=== PATIENT | male | born 1985 | race African-American/Black ===

== ENCOUNTER 2021-01-11 04:01 | Emergency (ER) | payer SELFPAY ==
[~2021-01-11] VITALS: Ht 177.8 cm; Wt 81.6 kg
--- NOTE | 2021-01-11 04:22 | NUR ---
CALLED MULTIPLE TIMES FOR TRAIGE WITH NO RESPONSE.
[2021-01-11 04:35] VITALS: BP 128/63
--- NOTE | 2021-01-11 04:40 | NUR ---
SEE PATIENT ASSESSMENT FOR MORE INFORMATION.
[2021-01-11] MEDS ORDERED: IBUPROFEN 800 MG TAB PO ONE (04:45)
--- NOTE | 2021-01-11 05:15 | NUR ---
LABS DRAWN AND WALKED TO LAB.
--- NOTE | 2021-01-11 05:20 | NUR ---
PATIENT TAKEN TO CT VIA GURNEY.
--- NOTE | 2021-01-11 05:32 | NUR ---
Pt returned from radiology via [facility].
[2021-01-11 05:37] LABS: BASOPHILS # (AUTO) 0.1 K/uL (0.00-0.22); BASOPHILS % (AUTO) 0.6 % (0.0-2.0); EOSINOPHILS # (AUTO) 0.3 K/uL (0-0.4); EOSINOPHILS % (AUTO) 3.3 % (0.0-4.0); HEMATOCRIT 39.2 % (36-52); HEMOGLOBIN 13.5 g/dL (12.0-18.0); LYMPHOCYTES # (AUTO) 2.2 K/uL (2.0-11.5); MEAN CORPUSCULAR HEMOGLOBIN 31 pg (27-31); MEAN CORPUSCULAR HGB CONC 34 g/dL (33-37); MEAN CORPUSCULAR VOLUME 91.6 fL (80-94); MONOCYTES # (AUTO) 0.9 K/uL (0.8-1.0); MONOCYTES % (AUTO) 10.9 % (1.7-9.3); NEUTROPHILS # (AUTO) 5.2 K/uL (1.8-7.7); NEUTROPHILS % (AUTO) 60.2 % (42.2-75.2); PLATELET COUNT (AUTO) 412 K/uL (140-450); RED BLOOD CELL COUNT(AUTO) 4.28 MIL/uL (4.20-6.10); RED CELL DISTRIBUTION WIDTH 14.1 % (11.6-13.7); WHITE BLOOD COUNT (AUTO) 8.6 K/uL (4.8-10.8)
[2021-01-11] MEDS: NACL 0.9% 1,000 ML IV ONE (05:37)
[2021-01-11 05:46] LABS: ALBUMIN 3.8 g/dL (3.4-5.0); ANION GAP 10.2 (8-16); ASPARTATE AMINOTRANSFERASE 31 U/L (15-37); CARBON DIOXIDE 27.8 mmol/L (21-32); CHLORIDE 103 mmol/L (98-107); CREATININE 0.8 mg/dL (0.6-1.3); GFR ARICAN-AMERICAN 141 mL/min (>90); GLUCOSE 91 mg/dL (74-106); SODIUM SERUM 137 mmol/L (136-145); TOTAL BILIRUBIN 0.3 mg/dL (0.0-1.0); UREA NITROGEN, BLOOD 14 mg/dL (7-18)
[2021-01-11] MEDS: KETOROLAC 30 MG/ML VIAL IVP ONE (06:49)
--- NOTE | 2021-01-11 07:03 | NUR ---
PATIENT UNABLE TO PROVIDE URINE. ERMD MADE AWARE. PER ERMD PATIENT OK TO DISCHARGE W/O PROVIDING URINE SAMPLE.
--- NOTE | 2021-01-11 07:13 | NUR ---
SECURITY CALLED TO BEDSIDE TO ESCORT PATIENT FROM FACILITY.
[2021-01-11 07:18] VITALS: BP 128/63
--- NOTE | 2021-01-11 07:18 | NUR ---
Patient discharged with v/s stable. Written and verbal after care instructions given and explained. Patient verbalized understanding. Ambulatory with steady gait. All questions addressed prior to discharge. Advised to follow up with PMD.
== END 2021-01-11 07:18 | disposition home or self-care (01) ==
LOC: MED 04:01
DX: R51.9 Headache, unspecified (principal); R41.82 Altered mental status, unspecified
CPT/HCPCS: 36415; 70450; 71045; 80053; 84484; 85025; 93005; 96361; 96374; 99285; G0482; J1885; J7030